=== PATIENT | female | born 1945 | race Caucasian/White ===

== ENCOUNTER → 2016-12-26 | Outpatient (CLI) | payer MEDICARE ==
--- NOTE | 2016-12-29 09:08 | CT ---
EXAM DESCRIPTION: CT abdomen and pelvis without contrast CLINICAL HISTORY: ABDOMINAL PAIN COMPARISON: None Available. TECHNIQUE: Noncontrast spiral CT with coronal and sagittal reformatted images. This exam was performed according to our departmental dose-optimization program, which includes automated exposure control, adjustment of the mA and/or kV according to patient size and/or use of iterative reconstruction technique. FINDINGS: Visualized lung bases are clear. Heart size is normal. Linear subsegmental atelectasis in the posterior segment right lower lobe No mass lesion in the abdominal viscera to suggest metastatic disease or primary neoplasm. Previous cholecystectomy. No biliary or pancreatic duct dilation No renal, ureteral or bladder calculus Atherosclerotic aorta without aneurysm No abnormality of the stomach or small intestine Numerous diverticula scattered throughout the sigmoid and to lesser extent descending colon. Transmural fat in the cecum, ascending and transverse colon likely sequela of remote inflammatory change. No diagnostic acute inflammatory process of the large intestine. Terminal ileum and appendix are normal Previous hysterectomy. 2.1 cm well-circumscribed left adnexal cyst, likely ovarian in etiology. Almost certainly benign, no follow-up imaging recommended No acute bony abnormality. Multilevel degenerative change in the spine. Severe disc and facet degeneration L4-5 IMPRESSION: Descending and sigmoid diverticulosis without diverticulitis. No diagnostic acute inflammatory process identified in the abdomen or pelvis Electronically signed by: Sabas Plasencia MD 12/29/2016 9:07 AM CDT
== END | disposition home or self-care (01) ==
LOC: CT 08:38
PROVIDERS: ATTEND Family Medicine
DX: K57.30 Diverticulosis of large intestine without perforation or abscess without bleeding (principal)

== ENCOUNTER 2017-05-23 14:58 | Emergency (ER) | payer MEDICARE ==
[2017-05-23] MEDS ORDERED: AZITHROMYCIN 250 MG TAB PO ONE (16:00)
[2017-05-23] MEDS ORDERED: predniSONE 20 MG TAB PO ONE (16:00)
[2017-05-23 16:09] VITALS: TEMP 97.7
--- NOTE | 2017-05-23 16:14 | ED.PDOC ---
History of Present Illness - General Chief Complaint: ENT Problem Stated Complaint: cough, sinus infection Time Seen by Provider: 05/23/17 16:00 Source: patient Exam Limitations: no limitations - History of Present Illness Initial Comments: The patient is a 71-year-old female presenting to the emergency room secondary to one week symptoms of cough and runny nose and generalized body aches. The patient was placed on Keflex last Thursday. She reports it has not helped much with the cough. She does have some sinus pressure. No real significant headache. No neurological changes. No documented fever. She reports that she has coughed enough that she is getting some pain in her upper back with the coughing as well as some pain in her anterior chest wall with coughing. No shortness of breath. Timing/Duration: 1 week Severity: mild Improving Factors: nothing Worsening Factors: nothing Associated Symptoms: cough, malaise Allergies/Adverse Reactions: Allergies NO KNOWN ALLERGY Allergy (Verified 05/23/17 16:10) Home Medications: Ambulatory Orders Clonidine HCl 0.1 mg PO 02/24/16 Phenytoin Sodium Cap Extended [Dilantin Cap] 0 mg PO 02/24/16 Triamcinolone Acetonide (Topic [Triamcinolone Acetonide] 1 applic TOP BID #30 gm 02/24/16 Azithromycin 500 mg PO DAILY #5 tab 05/23/17 predniSONE [Prednisone] 20 mg PO DAILY #3 tab 05/23/17 Review of Systems - Review of Systems Constitutional: States: malaise EENTM: States: nose congestion, throat pain - very mild Respiratory: States: cough Cardiology: States: no symptoms reported Gastrointestinal/Abdominal: States: no symptoms reported Genitourinary: States: no symptoms reported Musculoskeletal: States: see HPI Skin: States: no symptoms reported Neurological: States: no symptoms reported Endocrine: States: no symptoms reported All other Systems: No Change from Baseline Past Medical History (General) - Patient Medical History Hx Seizures: Yes Hx Stroke: No Hx Dementia: No Hx Asthma: No Hx of COPD: No Hx Cardiac Disorders: Yes - mitral valve prolapse, hyperlipidemia Hx Pacemaker: No Hx Hypertension: Yes Hx Thyroid Disease: No Hx Diabetes: No Hx Gastroesophageal Reflux: Yes Hx Renal Disease: No Hx Cancer: No Hx of HIV: No Hx Hepatitis C: No Hx MRSA: No Surgical History: Hysterectomy, other - Vaccination History Hx Tetanus, Diphtheria Vaccination: No Hx Influenza Vaccination: No Hx Pneumococcal Vaccination: No - Social History Hx Tobacco Use: Yes Hx Alcohol Use: Yes - rare Hx Substance Use: No Hx Substance Use Treatment: No Hx Depression: Yes - denies suicidal ideation Hx Physical Abuse: No Hx Emotional Abuse: No Hx Suspected Abuse: No - Female History Patient is a Female of Child Bearing Age (10 -59 yrs old): No Family Medical History - Family History Mother Living Status: Hx Cardiac Disease: Yes Hx Family;Other: renal cancer Father Living Status: Hx Family Diabetes: Yes Physical Exam - Physical Exam General Appearance: Alert, Comfortable, No apparent distress Eye Exam: bilateral normal Ears, Nose, Throat: hearing grossly normal - tympanic membranes show increased pressure but no obvious bacterial infection, nasal congestion, pharyngeal erythema - mild Neck: full range of motion, supple, normal inspection Respiratory: lungs clear - however the patient does have a rattley clearing cough from the upper airway, normal breath sounds, no respiratory distress, no accessory muscle use Cardiovascular/Chest: normal peripheral pulses, regular rate, rhythm, no edema Peripheral Pulses: radial,right: 2+, radial,left: 2+, dorsalis pedis,right: 2+, dorsalis pedis,left: 2+ Gastrointestinal/Abdominal: non tender, soft Rectal Exam: deferred Back Exam: normal inspection, no CVA tenderness Extremity: normal range of motion, non-tender, normal inspection, no pedal edema , normal capillary refill Neurologic: verification rep II-XII nml as tested, no motor/sensory deficits, alert, normal mood/affect, oriented x 3 Skin Exam: normal color Comments: Vital Signs - 24 hr 05/23/17 15:45 Temperature 97.7 F Pulse Rate [ 82 pulse ox] Respiratory 20 Rate Blood Pressure 161/74 [Left Arm] O2 Sat by Pulse 92 L Oximetry Progress - Progress Progress: 05/23/17 16:15 the patient is a 71-year-old female presenting to the emergency room secondary to persistent symptoms of rhinitis and bronchitis for the last week. The patient will be switched over to azithromycin though she does understand that it is more likely a viral infection than an atypical bacterial one. She additionally will be written for 3 days of oral prednisone to help reduce symptoms of the muscle strain and help reduce inflammation in the airways over the next few days. She needs to keep herself well hydrated. She should follow up with her primary care doctor early next week. ER warnings were given for any worsening. Departure - Departure Clinical Impression: Bronchitis, acute Qualifiers: Bronchitis organism: unspecified organism Qualified Code(s): J20.9 - Acute bronchitis, unspecified Disposition: Discharge to Home or Self Care Condition: Fair Departure Forms: ED Discharge - Pt. Copy, Patient Portal Self Enrollment Instructions: DI for Acute Bronchitis Diet: regular diet Activity: increase activity as tolerated Referrals: Adin Chatterjee MD [Primary Care Provider] - 1-5 Days Prescriptions: Azithromycin 500 mg PO DAILY #5 tab predniSONE [Prednisone] 20 mg PO DAILY #3 tab Home Medications: Ambulatory Orders Clonidine HCl 0.1 mg PO 02/24/16 Phenytoin Sodium Cap Extended [Dilantin Cap] 0 mg PO 02/24/16 Triamcinolone Acetonide (Topic [Triamcinolone Acetonide] 1 applic TOP BID #30 gm 02/24/16 Azithromycin 500 mg PO DAILY #5 tab 05/23/17 predniSONE [Prednisone] 20 mg PO DAILY #3 tab 05/23/17 Additional Instructions: the patient is a 71-year-old female presenting to the emergency room secondary to persistent symptoms of rhinitis and bronchitis for the last week. The patient will be switched over to azithromycin though she does understand that it is more likely a viral infection than an atypical bacterial one. She additionally will be written for 3 days of oral prednisone to help reduce symptoms of the muscle strain and help reduce inflammation in the airways over the next few days. She needs to keep herself well hydrated. She should follow up with her primary care doctor early next week. ER warnings were given for any worsening.
[2017-05-23 16:39] VITALS: BP 139/79; O2SAT 97
== END 2017-05-23 16:35 | disposition home or self-care (01) ==
LOC: ER 14:58
DX: J20.9 Acute bronchitis, unspecified (principal); R56.9 Unspecified convulsions; E78.5 Hyperlipidemia, unspecified; I34.1 Nonrheumatic mitral (valve) prolapse; I10 Essential (primary) hypertension; K21.9 Gastro-esophageal reflux disease without esophagitis; F32.9 Major depressive disorder, single episode, unspecified; F17.200 Nicotine dependence, unspecified, uncomplicated; Z79.899 Other long term (current) drug therapy
CPT/HCPCS: J7512; Q0144

== ENCOUNTER 2017-11-04 11:21 | Emergency (ER) | payer MEDICARE ==
[2017-11-04 11:39] VITALS: TEMP 97.2
--- NOTE | 2017-11-04 11:56 | ED.PDOC ---
History of Present Illness - General Chief Complaint: General Stated Complaint: generalized weakness,nausea Time Seen by Provider: 11/04/17 11:33 Source: patient Exam Limitations: no limitations - History of Present Illness Initial Comments: the patient is a 72-year-old female presenting to the emergency room secondary to feel like her blood pressures up and her heart rates and going little faster than normal.she has been having symptoms of sinusitis and purulent drainage from the last 2-3 weeks from bilateral maxillary sinuses. She has been taking [id number] cold medications which do likely contain some Sudafed. She takes clonidine only twice daily for blood pressure control. No focal neurological deficits. She feels fatigued and just generally weak. She has mild diffuse abdominal discomfort. She has had diverticulitis in the past. No defined fevers. No vomiting. Normal oral intake. No syncope or near- syncope. No chest pain. Timing/Duration: unsure Severity: mild Improving Factors: nothing Worsening Factors: nothing Associated Symptoms: headaches, malaise Allergies/Adverse Reactions: Allergies NO KNOWN ALLERGY Allergy (Verified 05/23/17 16:10) Home Medications: Ambulatory Orders Clonidine HCl 0.1 mg PO BID 02/24/16 Phenytoin Sodium Cap Extended [Dilantin Cap] 300 mg PO DAILY 02/24/16 Amoxicillin & Pot Clavulanate [Augmentin Tab] 875 mg PO BID #14 tab 11/04/17 Atorvastatin Calcium [Lipitor] 20 mg PO DAILY 11/04/17 Review of Systems - Review of Systems Constitutional: States: malaise EENTM: States: no symptoms reported Respiratory: States: no symptoms reported Cardiology: States: no symptoms reported Gastrointestinal/Abdominal: States: nausea - very mild Genitourinary: States: no symptoms reported Musculoskeletal: States: no symptoms reported Skin: States: no symptoms reported Neurological: States: headache - sinus Endocrine: States: no symptoms reported All other Systems: No Change from Baseline Past Medical History (General) - Patient Medical History Hx Seizures: Yes Hx Stroke: No Hx Dementia: No Hx Asthma: No Hx of COPD: No Hx Cardiac Disorders: Yes - mitral valve prolapse, hyperlipidemia Hx Pacemaker: No Hx Hypertension: Yes Hx Thyroid Disease: No Hx Diabetes: No Hx Gastroesophageal Reflux: Yes Hx Renal Disease: No Hx Cancer: No Hx of HIV: No Hx Hepatitis C: No Hx MRSA: No Surgical History: cholecystectomy, Hysterectomy - Vaccination History Hx Tetanus, Diphtheria Vaccination: No Hx Influenza Vaccination: No Hx Pneumococcal Vaccination: No - Social History Hx Tobacco Use: Yes Hx Alcohol Use: Yes - rare Hx Substance Use: No Hx Substance Use Treatment: No Hx Depression: Yes - denies suicidal ideation Hx Physical Abuse: No Hx Emotional Abuse: No Hx Suspected Abuse: No Family Medical History - Family History Mother Living Status: Hx Cardiac Disease: Yes Hx Family;Other: renal cancer Father Living Status: Cause of : CVA Hx Family Stroke: Yes Hx Family Diabetes: Yes Physical Exam - Physical Exam General Appearance: Alert, Comfortable, No apparent distress Eye Exam: bilateral normal Ears, Nose, Throat: hearing grossly normal, nasal congestion, other - the patient has tenderness to palpation over bilateral maxillary sinuses Neck: full range of motion, supple Respiratory: lungs clear, normal breath sounds, no respiratory distress, no accessory muscle use Cardiovascular/Chest: normal peripheral pulses, regular rate, rhythm, no edema Peripheral Pulses: radial,right: 2+, radial,left: 2+, dorsalis pedis,right: 2+, dorsalis pedis,left: 2+ Gastrointestinal/Abdominal: soft, other - mild diffuse discomfort to palpation. No definite palpable masses. No rebound or peritoneal signs. Rectal Exam: deferred Back Exam: normal inspection, no CVA tenderness, no vertebral tenderness Extremity: normal range of motion, non-tender, normal inspection, no pedal edema , normal capillary refill Neurologic: principal cloud architect II-XII nml as tested, no motor/sensory deficits - o nuchal rigidity or meningeal signs., alert, normal mood/affect, oriented x 3 Skin Exam: normal color Comments: Vital Signs - 24 hr 11/04/17 11:35 Temperature 97.2 F L Pulse Rate [ 78 Left Brachial] Respiratory 20 Rate Blood Pressure 158/74 [Left Arm] O2 Sat by Pulse 96 Oximetry Progress - Progress Progress: 11/04/17 11:57 the patient is a 72-year-old female presenting to the emergency room secondary to what is most likely bilateral maxillary sinusitis. The patient is going to be placed on Augmentin for 7 days. She needs to pharmacy picking technician some Rhinocort or Flonase and use that twice daily in each nostril for 10 days. She needs to discontinue any medications that have Sudafed or pseudoephedrine in them as these are likely driving up her blood pressures. blood pressure and heart rate here are within normal limits. She needs to keep herself well hydrated. She can take Pepcid twice daily for the next 2 weeks to help reduce any stomach discomfort from the medications. ER warnings were given for any significant worsening. she should follow-up with her primary care doctor in the next week or so. Departure - Departure Clinical Impression: Maxillary sinusitis, acute Qualifiers: Recurrence: not specified as recurrent Qualified Code(s): J01.00 - Acute maxillary sinusitis, unspecified Disposition: Discharge to Home or Self Care Condition: Fair Departure Forms: ED Discharge - Pt. Copy, Patient Portal Self Enrollment Instructions: DI for Sinusitis Diet: regular diet Activity: increase activity as tolerated Referrals: Adin Chatterjee MD [Primary Care Provider] - 1-2 Weeks Prescriptions: Amoxicillin & Pot Clavulanate [Augmentin Tab] 875 mg PO BID #14 tab Home Medications: Ambulatory Orders Clonidine HCl 0.1 mg PO BID 02/24/16 Phenytoin Sodium Cap Extended [Dilantin Cap] 300 mg PO DAILY 02/24/16 Amoxicillin & Pot Clavulanate [Augmentin Tab] 875 mg PO BID #14 tab 11/04/17 Atorvastatin Calcium [Lipitor] 20 mg PO DAILY 11/04/17 Additional Instructions: the patient is a 72-year-old female presenting to the emergency room secondary to what is most likely bilateral maxillary sinusitis. The patient is going to be placed on Augmentin for 7 days. She needs to pharmacy picking technician some Rhinocort or Flonase and use that twice daily in each nostril for 10 days. She needs to discontinue any medications that have Sudafed or pseudoephedrine in them as these are likely driving up her blood pressures. blood pressure and heart rate here are within normal limits. She needs to keep herself well hydrated. She can take Pepcid twice daily for the next 2 weeks to help reduce any stomach discomfort from the medications. ER warnings were given for any significant worsening. she should follow-up with her primary care doctor in the next week or so.
[2017-11-04 12:06] VITALS: BP 138/72; O2SAT 98
== END 2017-11-04 12:07 | disposition home or self-care (01) ==
LOC: ER 11:21
DX: J01.00 Acute maxillary sinusitis, unspecified (principal); E87.5 Hyperkalemia; I10 Essential (primary) hypertension; K21.9 Gastro-esophageal reflux disease without esophagitis; I34.1 Nonrheumatic mitral (valve) prolapse; Z87.891 Personal history of nicotine dependence

== ENCOUNTER → 2018-07-12 | Outpatient (CLI) | payer MEDICARE ==
--- NOTE | 2018-07-12 09:27 | CT ---
EXAM DESCRIPTION: Abdoment/Pelvis w/o Contrast CLINICAL HISTORY: 72 years Female, GENERALIZED ABDOMINAL PAIN COMPARISON: CT abdomen and pelvis dated 12/26/2016. TECHNIQUE: Contiguous 3 mm axial images were obtained from the lung bases to the level of the proximal femora without the administration of intravenous or oral contrast. Sagittal and coronal reconstructions were reviewed. FINDINGS: Limited evaluation of the solid organs due to the lack of intravenous contrast. THORAX: The imaged lower thorax demonstrates no gross abnormality. LIVER: The liver demonstrates normal size and density with no intrahepatic biliary ductal dilatation. GALLBLADDER: Surgically absent. PANCREAS: Appears normal with no cystic or solid lesions. SPLEEN: Normal ADRENAL GLANDS: Normal with no nodules or masses. KIDNEYS: Both kidneys are symmetric in size and contour with no hydronephrosis or nephrolithiasis or perinephric fluid collections. The visualized ureters appear grossly unremarkable. STOMACH: Thickening of the distal esophagus could be secondary to reflux. The stomach is not well-distended limiting detailed evaluation. SMALL BOWEL: The small bowel loops demonstrate variable degrees of distention with no abnormal dilatation or other signs to suggest bowel obstruction. LARGE BOWEL: Numerous diverticula are noted throughout the visualized colon. Mild constipation is also present. The appendix is well-visualized and appears normal No evidence of free intraperitoneal air or fluid. RETROPERITONEUM: The abdominal aorta is nonaneurysmal with mild atherosclerosis. The inferior vena cava is normal in size and caliber. No abnormally enlarged retroperitoneal lymph nodes are identified. URINARY BLADDER: The urinary bladder is mildly distended with no gross abnormality. The uterus is surgically absent. There is a 2.5 x 2.3 cm cystic lesion in the left adnexa which appears unchanged compared to prior CT dated 09/05/2015. ADDITIONAL FINDINGS: None. BONES: Mild degenerative changes are identified in the visualized bones. Stable 9 mm blastic lesion is identified in the posterior aspect of the left ilium. IMPRESSION: 1. No acute intra-abdominal or intrapelvic process. 2. Mild reflux esophagitis. 3. Colonic diverticulosis. Mild constipation. 4. 2.5 x 2.3 cm lesion is noted in the left adnexa which appears unchanged compared to prior CT dated 09/05/2015. Recommend prompt follow-up with pelvic US.Reference: J Am Marlene Radiol 2013;10:[id number] This exam was performed according to our departmental dose-optimization program, which includes automated exposure control, adjustment of the mA and/or kV according to patient size and/or use of iterative reconstruction technique. Electronically signed by: Maria Dolores Blake MD 07/12/2018 9:25 AM [facility]
== END ==
LOC: CT 08:11
PROVIDERS: ATTEND Family Medicine
DX: K57.30 Diverticulosis of large intestine without perforation or abscess without bleeding (principal); K59.00 Constipation, unspecified; K20.9 Esophagitis, unspecified; R10.84 Generalized abdominal pain

== ENCOUNTER → 2018-07-28 | Outpatient (CLI) | payer MEDICARE ==
--- NOTE | 2018-07-28 16:11 | RAD ---
EXAM DESCRIPTION: UGI: Rad-Fluoroscopy. CLINICAL HISTORY: GENERALIZED ABDOMINAL PAIN COMPARISON: CT abdomen and pelvis 07/12/2018. TECHNIQUE: The patient swallowed barium pill with water. The patient swallowed gas-producing granules, water, and heavy density barium under fluoroscopic visualization. The images were obtained with the patient upright and horizontal. Patient drank medium density barium through a straw in the semi-prone position. 52 fluoroscopic cine loop images. 19 static fluoroscopic images. Total fluoroscopy time was 4.4 minutes. DAP: 28.15 Gy-cm2.. Total dose 115.16 mGy. FINDINGS: Patient swallowed the barium pill which did not pass through the distal esophagus with 6 swallows of water. Please see the following findings. When the patient swallowed barium, there was approximately 50% narrowing of the distal esophagus above the esophageal hiatus where the barium pill was located. The degree of this narrowing varied during the examination, but occasionally completely occluded and not allowing barium to pass into the gastroesophageal junction. Tertiary and secondary contractions are noted in the esophagus with delayed passage of the contrast through the narrowed segment. A hiatal hernia was intermittently seen below the narrowed segment. On later images, this narrowed segment appears to correspond to a Schatzki's ring above the hiatal hernia. More swallowing images were obtained with the patient semiprone left side elevated. The barium pill is still visualized above the Schatzki's ring. After the patient finished drinking in the semiprone position, the barium pill passed into the stomach. Minimal gastroesophageal reflux. Stomach and duodenum are distended with gas and contrast material. No gross mucosal lesions or mass effect. IMPRESSION: 1. Small sliding hiatal hernia below a Schatzki's ring which demonstrates variable degrees of narrowing of the distal esophagus even complete occlusion. No mass effect or significant mucosal lesions. Secondary and tertiary contractions in the distal esophagus. 2. Stomach and duodenum well distended with gas and contrast material with no gross mucosal lesions or mass effect. Electronically signed by: Cy Minor MD 07/28/2018 4:08 PM [facility]
--- NOTE | 2018-07-29 08:53 | US ---
EXAM DESCRIPTION: Pelvic,Non-OB: Ultrasound. CLINICAL HISTORY: 73 years Female GENERALIZED ABDOMINAL PAIN. Prior hysterectomy and right oophorectomy. COMPARISON: CT scan abdomen and pelvis 09/05/2015. TECHNIQUE: Transcutaneous scanning through the urine filled bladder. Endovaginal scanning. Stewart-scale and Doppler modes. FINDINGS: Uterus has been removed. Vaginal cuff is unremarkable Cul-de-sac contains no fluid. Right ovary not visualized. No adnexal mass or free fluid. Left ovary 2.2 x 2.1 x 2.1 cm. Predominantly cystic. Minimal color Doppler vascularity. No adnexal mass or free fluid. IMPRESSION: 1. Uterus and right ovary have been removed. No free fluid or right adnexal mass. 2.Indeterminately sized simple ovarian cyst. No change from prior CT scan August 2015. If <= 3cm, no follow-up imaging is recommended; if > 3cm and <= 7cm, recommend follow-up pelvic US annually; if > 7cm, recommend follow-up pelvic MRI with IV contrast or surgical evaluation. Reference: Radiology 2009;256(3):[id number] Electronically signed by: Cy Minor MD 07/29/2018 8:50 AM [facility]
== END ==
LOC: RAD 08:00
PROVIDERS: ATTEND Family Medicine
DX: K44.9 Diaphragmatic hernia without obstruction or gangrene (principal); K22.2 Esophageal obstruction; Z90.710 Acquired absence of both cervix and uterus

== ENCOUNTER 2018-08-27 05:43 | Day surgery (SDC) | payer MEDICARE ==
[2018-08-27] MEDS ORDERED: PROPOFOL 200 MG/20 ML VIAL IV ONE (07:00)
[2018-08-27] MEDS: LACTATED RINGERS 1,000 ML ONE (11:15)
--- NOTE | 2018-08-27 13:23 | OP ---
DATE OF PROCEDURE: 08/27/18 PREPROCEDURE DIAGNOSIS: 1. Dysphagia. POSTPROCEDURE DIAGNOSIS: 1. Abnormal esophageal mucosa status post dilation, Savary, 18 mm. 2. Erythematous gastropathy. PROCEDURE: 1. Esophagogastroduodenoscopy. SURGEON: Leo Wild MD COMPLICATIONS: No immediate complications. SEDATION: Anesthesia provided by the Anesthesia Department. CONSENT: Prior to the procedure, risks, benefits and alternatives to the therapy were discussed with the patient. The risks included bleeding, infection, perforation and . The patient agreed to the procedure and signed a consent. PREPROCEDURE ANESTHESIA ASSESSMENT: Mallampati class type 2, ASA grade assessment type 2. Throughout the procedure, the patient's blood pressure and additional vitals were closely monitored. PROCEDURE: The patient was placed in the left lateral decubitus position. Bite block was placed in the mouth between the teeth. The Olympus endoscope was introduced through the oropharynx, esophagus, stomach and the second portion of the duodenum. The scope was retracted and the mucosa visualized. The entirety of the exam was performed under direct visualization. Retroflexion was performed in the stomach. The patient tolerated the procedure well. FINDINGS: 1. Subtle, abnormal findings in the mucosa were found throughout the esophagus which were characterized by longitudinal furrows and ringed esophagus. Distal and proximal esophageal biopsies were obtained with cold forceps to rule out eosinophilic esophagitis (EOE). Preparations were made for dilation. A Savary wire was advanced through the scope and the scope was removed. Serial dilation was achieved with Savary tube, initially 17 mm, then 18 mm with mild and moderate resistance, respectively. There was no bleeding during or at the end of the procedure. 2. Erythema was found in the gastric antrum. Biopsies were taken with cold forceps to rule out H. pylori. Otherwise, the stomach was normal. 3. Normal duodenum. RECOMMENDATION: 1. Return the patient home. 2. Resume previous diet. 3. Start omeprazole 40 mg p.o. b.i.d. 4. Followup pathology results. 5. Return to my office in the next 1 to 2 weeks. 6. The findings were discussed with the patient and family members. #[id number] [facility]
[2018-08-27 13:29] VITALS: BP 186/73; TEMP 97.4; O2SAT 99
== END 2018-08-27 13:20 ==
LOC: AMB 05:43
PROVIDERS: ATTEND Internal Medicine Gastroenterology
DX: K29.50 Unspecified chronic gastritis without bleeding (principal); I10 Essential (primary) hypertension; I25.10 Atherosclerotic heart disease of native coronary artery without angina pectoris; I48.91 Unspecified atrial fibrillation; F17.210 Nicotine dependence, cigarettes, uncomplicated; Z86.010 Personal history of colon polyps; Z79.82 Long term (current) use of aspirin; Z79.899 Other long term (current) drug therapy
CPT/HCPCS: 00731; 43239; 43248; 88305; 88342; J3490; J7120

== ENCOUNTER 2018-10-29 05:22 | Day surgery (SDC) | payer MEDICARE ==
[2018-10-29] MEDS ORDERED: LIDOCAINE 1% 10 ML VIAL INJ ONE (07:00)
[2018-10-29] MEDS ORDERED: PROPOFOL 200 MG/20 ML VIAL IV ONE (07:00)
[2018-10-29] MEDS ORDERED: LACTATED RINGERS 1,000 ML ONE (07:04)
[2018-10-29 09:53] VITALS: BP 160/79; TEMP 97.2; O2SAT 99
--- NOTE | 2018-10-29 10:09 | OP ---
DATE OF PROCEDURE: 10/29/18 PREPROCEDURE DIAGNOSIS: 1. Colorectal cancer screening. POSTPROCEDURE DIAGNOSIS: 1. Colonic polyps. 2. Diverticulosis. 3. Internal and external hemorrhoids. 4. Hypertrophic anal papilla. PROCEDURE: 1. Colonoscopy. SURGEON: Leo Wild MD COMPLICATIONS: No immediate complications. SEDATION: Anesthesia was provided by the Anesthesia Department. CONSENT: Prior to the procedure, risks, benefits and alternatives to the therapy were discussed with the patient. The risks included bleeding, infection, perforation and . The patient agreed to the procedure and signed a consent. PREPROCEDURE ANESTHESIA ASSESSMENT: An examination revealed no contraindication to sedation. Airway examination demonstrated a Mallampati class type 2, ASA grade assessment type 2. Throughout the procedure, the patient's vital signs were closely monitored. PROCEDURE: The patient was placed in the left lateral decubitus position and a rectal examination was performed. The rectal examination was within normal limits. The Olympus colonoscope was passed in the anus, rectum, traversing the colon to the level of the cecum as identified by the appendiceal orifice. The scope was retracted and the mucosa was visualized. The entirety of the exam was performed under direct visualization. Retroflexion was performed in the rectum. Preparation quality was good. The withdrawal time was greater than 6 minutes. The patient tolerated the procedure well. FINDINGS: 1. Multiple colonic polyps were found throughout the colon. One 3 mm polyp was found in the ascending colon, one 8 mm sessile polyp in the transverse colon, one 5 mm sessile polyp in the descending colon, and one 5 mm sessile polyp in the rectum. These were all removed with cold snare polypectomy. The polyps were complete retrieved. No bleeding during or at the end of the procedure. 2. Moderate diverticulosis was found throughout the colon, more predominant in the sigmoid and descending colon. 3. Large, non-bleeding internal hemorrhoids, grade 3. 4. External hemorrhoids were also visualized. 5. Hypertrophic anal papilla. RECOMMENDATION: 1. Return the patient home. 2. Resume previous diet favoring high-fiber foods. 3. Followup pathology results. 4. Repeat colonoscopy in the next 3 years if evidence of adenomatous tissue and polyps. 5. Return to referring physicians office as previously scheduled. 6. Findings were discussed with the patient and family members. #[id number] [facility]
== END 2018-10-29 09:45 | disposition home or self-care (01) ==
LOC: AMB 05:22
PROVIDERS: ATTEND Internal Medicine Gastroenterology
DX: Z12.11 Encounter for screening for malignant neoplasm of colon (principal); D12.2 Benign neoplasm of ascending colon; D12.4 Benign neoplasm of descending colon; D12.3 Benign neoplasm of transverse colon; K62.1 Rectal polyp; K57.30 Diverticulosis of large intestine without perforation or abscess without bleeding; K64.2 Third degree hemorrhoids; K64.4 Residual hemorrhoidal skin tags; K62.89 Other specified diseases of anus and rectum; K59.00 Constipation, unspecified; F17.210 Nicotine dependence, cigarettes, uncomplicated; F41.9 Anxiety disorder, unspecified; F32.9 Major depressive disorder, single episode, unspecified; I10 Essential (primary) hypertension; G40.409 Other generalized epilepsy and epileptic syndromes, not intractable, without status epilepticus; Z83.3 Family history of diabetes mellitus; Z83.71 Family history of colonic polyps; Z79.82 Long term (current) use of aspirin; Z79.899 Other long term (current) drug therapy
CPT/HCPCS: 00812; 45385; 88305; J3490; J7120

== ENCOUNTER → 2018-11-24 | Outpatient (CLI) | payer MEDICARE | LOC: GMAH 10:31 | PROVIDERS: ATTEND Family Medicine | DX: I10 Essential (primary) hypertension (principal); G40.309 Generalized idiopathic epilepsy and epileptic syndromes, not intractable, without status epilepticus; N39.0 Urinary tract infection, site not specified ==

== ENCOUNTER 2019-03-28 06:35 | Emergency (ER) | payer MEDICARE ==
[2019-03-28 06:50] VITALS: TEMP 98.2
[2019-03-28] MEDS ORDERED: SODIUM CHLORIDE 0.9% IVS ONE (07:09)
--- NOTE | 2019-03-28 07:22 | RAD ---
EXAM DESCRIPTION: Chest,1 View CLINICAL HISTORY: chest tightness COMPARISON: February 16, 2015 FINDINGS: The cardiomediastinal silhouette is unremarkable. The lung apices are partially excluded from this exam. Mild subsegmental atelectasis or scarring in the right lung base without airspace consolidation or pleural effusion. The lung volumes are at the upper limits of normal range. There is no pneumothorax or acute fracture. IMPRESSION: Upper normal lung volumes which may be related to deep inspiration or underlying COPD. No acute intrathoracic abnormality, only slightly limited as detailed above. Electronically signed by: Stan Malik MD 03/28/2019 7:21 AM CDT
[2019-03-28] MEDS ORDERED: IPRATROPIUM/ALBUTEROL 3 ML VIAL NEB ONE (07:25)
[2019-03-28] MEDS ORDERED: cefTRIAXone SODIUM 1 GM in SODIUM CHL 0.9% 50ML MIN-BAG+ 50 ML IVPB ONE (07:26)
[2019-03-28] MEDS ORDERED: methylPREDNISolone SODIUM SUC 125 MG/2 ML VIAL IV ONE (07:26)
[2019-03-28] MEDS ORDERED: cefTRIAXone SODIUM 1 GM VIAL ONE (07:32)
[2019-03-28] MEDS ORDERED: SODIUM CHL 0.9% 50ML MIN-BAG+ 0 ML IVPB ONE (07:32)
--- NOTE | 2019-03-28 07:32 | ED.PDOC ---
History of Present Illness - General Chief Complaint: Cardiovascular Problem Stated Complaint: rapid pulse, elevated blood pressure Time Seen by Provider: 03/28/19 07:03 Source: patient - History of Present Illness Initial Comments: 73 y/o F presents to the ED with c/o SOB, elevated HR and BP onset last night. Pt reports that she checked her HR and BP after she wasn't feeling well and noticed that they were abnormal. She reports a hx of irregular HR in the past but reports that she doesn't take anything for it and has never seen a frame trimmer. She reports cough and SOB also onset 1 day ago, she has a hx of smoking but denies hx of lung dz. She was recently placed on macrobid for treatment of "a kidney infection" and finished abx but states that her back pain has not significantly changed since taking the medication. She denies fever/chills or N/V. Sx currently moderate in severity and nothing she does seems to make them better or worse. Allergies/Adverse Reactions: Allergies NO KNOWN ALLERGY Allergy (Verified 10/28/18 12:54) Home Medications: Ambulatory Orders Clonidine HCl 0.1 mg PO BID 02/24/16 Phenytoin Sodium Cap Extended [Dilantin Cap] 300 mg PO QPM 02/24/16 Atorvastatin Calcium [Lipitor] 20 mg PO QPM 11/04/17 Aspirin [Aspirin Adult Low Dose] 81 mg PO BEDTIME 08/26/18 Omeprazole [Prilosec Cap] 40 mg PO ACBK 10/28/18 Prochlorperazine Tab [Compazine Tab] 10 mg PO PRN PRN 10/28/18 Albuterol Inhaler [Ventolin Hfa Inhaler] 1 - 2 puff INH Q4H PRN #1 inh 03/28/19 Cephalexin Monohydrate [Keflex] 500 mg PO TID #30 cap 03/28/19 Prednisone 50 mg PO DAILY #5 tab 03/28/19 Review of Systems - Review of Systems Constitutional: States: weakness. Denies: chills, fever EENTM: Denies: double vision, ear pain, throat pain Respiratory: States: cough, short of breath Cardiology: States: palpitations. Denies: chest pain, edema, syncope Gastrointestinal/Abdominal: States: nausea. Denies: abdominal pain, diarrhea, vomiting Genitourinary: States: pain. Denies: dysuria, hematuria Musculoskeletal: Denies: joint pain, muscle pain, neck pain Skin: Denies: lesions, rash Neurological: States: other - lightheaded. Denies: headache, numbness, weakness Past Medical History (General) - Patient Medical History Hx Seizures: Yes Hx Stroke: No Hx Dementia: No Hx Asthma: No Hx of COPD: No Hx Cardiac Disorders: Yes - mitral valve prolapse, hyperlipidemia Hx Congestive Heart Failure: No Hx Pacemaker: No Hx Hypertension: Yes Hx Thyroid Disease: No Hx Diabetes: No Hx Gastroesophageal Reflux: Yes Hx Renal Disease: No Hx Cancer: No Hx of HIV: No Hx Hepatitis C: No Hx MRSA: No Surgical History: Hysterectomy - Vaccination History Hx Tetanus, Diphtheria Vaccination: No Hx Influenza Vaccination: Yes Hx Pneumococcal Vaccination: No - Social History Hx Tobacco Use: Yes Hx Alcohol Use: Yes - rare Hx Substance Use: No Hx Substance Use Treatment: No Hx Depression: Yes - denies suicidal ideation Hx Physical Abuse: No Hx Emotional Abuse: No Hx Suspected Abuse: No Family Medical History - Family History Mother Living Status: Hx Cardiac Disease: Yes Hx Family;Other: renal cancer Father Living Status: Cause of : CVA Hx Family Stroke: Yes Hx Family Diabetes: Yes Physical Exam - Physical Exam General Appearance: Alert, Well Developed, Well Nourished Eye Exam: bilateral normal Ears, Nose, Throat: normal pharynx, other - Slightly dry mucous membranes. Neck: full range of motion, supple, normal inspection Respiratory: no respiratory distress, no accessory muscle use, other - coarse BS. Cardiovascular/Chest: no edema, no murmur, tachycardia Peripheral Pulses: radial,right: 2+, radial,left: 2+, dorsalis pedis,right: 2+, dorsalis pedis,left: 2+ Gastrointestinal/Abdominal: normal bowel sounds, non tender, soft Back Exam: normal inspection, no CVA tenderness, no vertebral tenderness Extremity: normal range of motion, normal inspection, no pedal edema Neurologic: no motor/sensory deficits, alert, normal mood/affect, oriented x 3, abnormal forge helper II-XII Skin Exam: normal color, warm/dry Progress - Progress Progress: 03/28/19 08:10: Lab and imaging results reviewed showing leukocytosis with hematuria and pyruria without lactic acidosis consistent with UTI. Age adjusted D-Dimer is within normal limits. Trop and BNP WNL. Chem with slightly low bicarb. CXR suggestive of COPD. As pt continues to have back pain with hematuria and no hx of stones will CT A/P for further evaluation. Pr recheck: Pt is resting comfortably. HR now down to the 90s after IVF. She states that breathing has improved after neb treatments. We discussed lab and imaging results so far along with plan for CT scan for back pain/hematuria and continued monitoring. Pt voiced understanding and agrees. 03/28/19 09:27 CT A/P results reviewed. Pt rechcek: Pt still resting comfortably. VSS. We discussed CT findings and admission. Pt states that if at all possible she would prefer to go home on out pt medications and PCP follow up. We discussed repeat trop and lactic acid testing and pt agrees to stay for these tests. 03/28/19 10:00 Repeat lactic acid and trop both within normal limits. VSS. With normal trop at presentation and 3 hours later and improvmernt with avelino treatments I doubt pt SOB due to cardiac cause and more likely related to COPD. Pt advised on this and advised to f/u with PCP for formal testing and diagnosis. With leukocytosis but no findings of severe sepsis, I think it is reasonable to d/c pt with out pt management and f/u. Pt recheck: Lab results discussed, pt would still like to go home. Went over plan for d/c, Rx and how to take them as well as return precautions. Pt voiced understanding and agrees and all questions/concerns were addressed. - Results/Orders Results/Orders: 03/28/19 06:54 Telemetry .ONCE Pulse Ox Stat 03/28/19 07:00 EKG STAT 03/28/19 07:09 Sodium Chloride 0.9% 1000ML [Ns 1000 ml] 1,959.51 ml IVS ONCE 03/28/19 07:20 BLOOD CULTURE Stat 03/28/19 07:45 SVN [SVN/Updraft Therapy] .PRN 03/28/19 08:10 Abdoment/Pelvis w/o Contrast [CT] Stat 03/28/19 09:15 LACTIC ACID Q2H 03/29/19 01:15 LACTIC ACID Q2H 03/29/19 03:15 LACTIC ACID Q2H 03/29/19 05:15 LACTIC ACID Q2H Laboratory Results - last 24 hr 03/28/19 03/28/19 03/28/19 07:09 07:09 07:09 WBC 15.9 H RBC 4.49 Hgb 14.2 Hct 42.6 MCV 94.9 MCH 31.6 H MCHC 33.3 RDW 13.8 Plt Count 362 MPV 7.1 L Absolute Neuts (auto) 14.00 H Absolute Lymphs (auto) 0.60 L Absolute Monos (auto) 1.20 H Absolute Eos (auto) 0.10 Absolute Basos (auto) 0.00 Neutrophils % 87.8 H Lymphocytes % 3.9 L Monocytes % 7.5 Eosinophils % 0.7 L Basophils % 0.1 PT 10.4 INR 1.04 PTT (SP) 24.6 D-Dimer, Quantitative 0.52 H* Sodium 133 L Potassium 3.8 Chloride 103 Carbon Dioxide 19 L Anion Gap 14.8 BUN 9 Creatinine 0.51 L BUN/Creatinine Ratio 17.6 Random Glucose 156 H Serum Osmolality 268.3 L Lactic Acid 1.4 Calcium 8.5 Magnesium 1.7 L Total Bilirubin 0.4 Direct Bilirubin < 0.1 Indirect Bilirubin 0.3 AST 20 ALT 20 Alkaline Phosphatase 123 H Creatine Kinase 67 CK-MB (CK-2) 1.9 CK-MB (CK-2) % Not Reportable Troponin I < 0.02 B-Natriuretic Peptide 30.6 Serum Total Protein 6.4 Albumin 3.4 Urine Color Urine Appearance Urine pH Ur Specific [place] Urine Protein Urine Glucose (UA) Urine Ketones Urine Blood Urine Nitrite Urine Bilirubin Urine Urobilinogen Ur Leukocyte Esterase Urine RBC Urine WBC Ur Epithelial Cells Urine Bacteria Urine Mucus Urine Yeast 03/28/19 07:20 WBC RBC Hgb Hct MCV MCH MCHC RDW Plt Count MPV Absolute Neuts (auto) Absolute Lymphs (auto) Absolute Monos (auto) Absolute Eos (auto) Absolute Basos (auto) Neutrophils % Lymphocytes % Monocytes % Eosinophils % Basophils % PT INR PTT (SP) D-Dimer, Quantitative Sodium Potassium Chloride Carbon Dioxide Anion Gap BUN Creatinine BUN/Creatinine Ratio Random Glucose Serum Osmolality Lactic Acid Calcium Magnesium Total Bilirubin Direct Bilirubin Indirect Bilirubin AST ALT Alkaline Phosphatase Creatine Kinase CK-MB (CK-2) CK-MB (CK-2) % Troponin I B-Natriuretic Peptide Serum Total Protein Albumin Urine Color Yellow Urine Appearance Clear Urine pH 6.0 Ur Specific [place] 1.020 Urine Protein Negative Urine Glucose (UA) Negative Urine Ketones Negative Urine Blood Small H Urine Nitrite Negative Urine Bilirubin Negative Urine Urobilinogen 0.2 Ur Leukocyte Esterase Negative Urine RBC 10-20 H Urine WBC 3-5 H Ur Epithelial Cells 5-10 Urine Bacteria 1+ Urine Mucus Trace Urine Yeast Rare CXR read by radiology and reviewed by myself: IMPRESSION: Upper normal lung volumes which may be related to deep inspiration or underlying COPD. No acute intrathoracic abnormality, only slightly limited as detailed above. Electronically signed by: Stan Malik MD 03/28/2019 7:[address] A/P Read by radiology and reviewed by myself: IMPRESSION: Etiology of hematuria not identified. No renal stone disease. No neoplastic mass lesion Colonic diverticulosis without diverticulitis Electronically signed by: Sabas Plasencia MD 03/28/2019 9:16 AM CDT - EKG/XRAY/CT EKG: Tachy, LBBB, nonspecific ST T wave Chg Comments: rate 104. LAD. Read at 0643 Departure - Departure Clinical Impression: Bronchitis, SOB (shortness of breath) UTI (urinary tract infection) Qualifiers: Urinary tract infection type: site unspecified Hematuria presence: with hematuria Qualified Code(s): N39.0 - Urinary tract infection, site not specified; R31.9 - Hematuria, unspecified Time of Disposition: 10:05 Disposition: Discharge to Home or Self Care Condition: Good Departure Forms: ED Discharge - Pt. Copy, Patient Portal Self Enrollment Instructions: COPD Including Emphysema (DC), Urinary Tract Infections in Adults Referrals: Kt Gee MD [Primary Care Provider] - 1-2 Weeks Prescriptions: Albuterol Inhaler [Ventolin Hfa Inhaler] 1 - 2 puff INH Q4H PRN #1 inh PRN Reason: sob Cephalexin Monohydrate [Keflex] 500 mg PO TID #30 cap Prednisone 50 mg PO DAILY #5 tab Home Medications: Ambulatory Orders Clonidine HCl 0.1 mg PO BID 02/24/16 Phenytoin Sodium Cap Extended [Dilantin Cap] 300 mg PO QPM 02/24/16 Atorvastatin Calcium [Lipitor] 20 mg PO QPM 11/04/17 Aspirin [Aspirin Adult Low Dose] 81 mg PO BEDTIME 08/26/18 Omeprazole [Prilosec Cap] 40 mg PO ACBK 10/28/18 Prochlorperazine Tab [Compazine Tab] 10 mg PO PRN PRN 10/28/18 Albuterol Inhaler [Ventolin Hfa Inhaler] 1 - 2 puff INH Q4H PRN #1 inh 03/28/19 Cephalexin Monohydrate [Keflex] 500 mg PO TID #30 cap 03/28/19 Prednisone 50 mg PO DAILY #5 tab 03/28/19 Additional Instructions: Take medications as directed. Call PCP today to schedule f/u appt as soon as possible. Return for persistent or worsening sx, fevers or other concerning signs or sx. Comments: Linda Bunch DO [facility]#[id number]
--- NOTE | 2019-03-28 09:17 | CT ---
EXAM DESCRIPTION: CT abdomen and pelvis without contrast CLINICAL HISTORY: Back pain. Hematuria. COMPARISON: 07/12/2018 TECHNIQUE: Spiral CT with multiplanar reformatted images. This exam was performed according to our departmental dose-optimization program, which includes automated exposure control, adjustment of the mA and/or kV according to patient size and/or use of iterative reconstruction technique. FINDINGS: No renal, ureteral or bladder calculus. Multiple phleboliths in the pelvis. Phlebolith of the ovarian veins in the mid abdomen. No mass lesion of the kidneys ureters or bladder Colonic diverticulosis primarily affecting descending and sigmoid colon without diverticulitis. No mass lesion or acute inflammatory process seen in the stomach, small or large intestine Heart size is normal. Mild vascular congestion. Bilateral small pleural effusions and adjacent compressive atelectasis of the dependent bilateral lower lobes. No abnormality of the liver. Previous cholecystectomy. No biliary duct dilation Normal appearance of the spleen, pancreas and adrenal glands No mass lesion or adenopathy in the omentum, mesentery or retroperitoneum. Atherosclerotic aorta without aneurysm No acute bony abnormality. Multilevel degenerative change spine IMPRESSION: Etiology of hematuria not identified. No renal stone disease. No neoplastic mass lesion Colonic diverticulosis without diverticulitis Electronically signed by: Sabas Plasencia MD 03/28/2019 9:16 AM CDT
[2019-03-28 09:19] VITALS: O2SAT 93
[2019-03-28 10:03] VITALS: BP 139/60
== END 2019-03-28 10:15 | disposition home or self-care (01) ==
LOC: ER 06:35
DX: J40 Bronchitis, not specified as acute or chronic (principal); R06.02 Shortness of breath; N39.0 Urinary tract infection, site not specified; R31.9 Hematuria, unspecified; E78.5 Hyperlipidemia, unspecified; I34.1 Nonrheumatic mitral (valve) prolapse; I10 Essential (primary) hypertension; K21.9 Gastro-esophageal reflux disease without esophagitis; Z87.891 Personal history of nicotine dependence; F32.9 Major depressive disorder, single episode, unspecified; D72.829 Elevated white blood cell count, unspecified; I44.7 Left bundle-branch block, unspecified
CPT/HCPCS: 36415; 71045; 74176; 80048; 80076; 81001; 82550; 82553; 83605; 83880; 84484; 85025; 85379; 85610; 85730; 87040; 93005; 94640; 94760; J0696; J2930; J7030; J7620

== ENCOUNTER 2019-04-09 18:06 | Emergency (ER) | payer MEDICARE ==
[2019-04-09 18:19] VITALS: TEMP 98; O2SAT 96
[2019-04-09] MEDS ORDERED: KETOROLAC TROMETHAMINE INJ 30 MG/ML VIAL IM ONE (18:32)
--- NOTE | 2019-04-09 18:33 | ED.PDOC ---
History of Present Illness - General Chief Complaint: Problem Stated Complaint: Urgency, frequency, discomfort Time Seen by Provider: 04/09/19 18:25 Source: patient, RN notes reviewed, Vital Signs reviewed Exam Limitations: no limitations - History of Present Illness Initial Comments: this is a 73-year-old white female who presents to the emergency Department today with complaints of dysuria. She states that this is been ongoing for approximately one month. She was placed on Keflex originally and then Macrodantin thereafter approximately 2 weeks apart. She states that she has not had relief of her symptoms since then. She did have left flank tenderness early on and thenit resolved and then in the last couple of days she has noticed that she has been sore on the left side again. She denies any emesis. She has had some nausea here and there. She denies any fever or chills. Has not noticed any hematuria. The last time she was treated there was not a culture obtained. Allergies/Adverse Reactions: Allergies NO KNOWN ALLERGY Allergy (Verified 04/09/19 18:18) Home Medications: Ambulatory Orders Clonidine HCl 0.1 mg PO BID 02/24/16 Phenytoin Sodium Cap Extended [Dilantin Cap] 300 mg PO QPM 02/24/16 Atorvastatin Calcium [Lipitor] 20 mg PO QPM 11/04/17 Aspirin [Aspirin Adult Low Dose] 81 mg PO BEDTIME 08/26/18 Omeprazole [Prilosec Cap] 40 mg PO ACBK 10/28/18 Prochlorperazine Tab [Compazine Tab] 10 mg PO PRN PRN 10/28/18 Albuterol Inhaler [Ventolin Hfa Inhaler] 1 - 2 puff INH Q4H PRN #1 inh 03/28/19 Ciprofloxacin [Cipro] 250 mg PO Q12H #14 tablet 04/09/19 Phenazopyridine HCl [Pyridium] 200 mg PO Q8HRS #6 tab 04/09/19 Review of Systems - Review of Systems Constitutional: Denies: chills, fever EENTM: States: no symptoms reported Respiratory: States: no symptoms reported Cardiology: States: no symptoms reported Gastrointestinal/Abdominal: States: abdominal pain, nausea. Denies: vomiting Genitourinary: States: dysuria, frequency, pain. Denies: hematuria Musculoskeletal: States: back pain, other - left-sided Skin: States: no symptoms reported Neurological: States: no symptoms reported Hematologic/Lymphatic: States: no symptoms reported All other Systems: Reviewed and Negative Past Medical History (General) - Patient Medical History Hx Seizures: Yes Hx Stroke: No Hx Dementia: No Hx Asthma: No Hx of COPD: No Hx Cardiac Disorders: Yes - mitral valve prolapse, hyperlipidemia Hx Congestive Heart Failure: No Hx Pacemaker: No Hx Hypertension: Yes Hx Thyroid Disease: No Hx Diabetes: No Hx Gastroesophageal Reflux: Yes Hx Renal Disease: No Hx Cancer: No Hx of HIV: No Hx Hepatitis C: No Hx MRSA: No Surgical History: cholecystectomy, Hysterectomy - Vaccination History Hx Tetanus, Diphtheria Vaccination: No Hx Influenza Vaccination: Yes Hx Pneumococcal Vaccination: No - Social History Hx Tobacco Use: Yes Hx Alcohol Use: Yes - rare Hx Substance Use: No Hx Substance Use Treatment: No Hx Depression: Yes - denies suicidal ideation Hx Physical Abuse: No Hx Emotional Abuse: No Hx Suspected Abuse: No Family Medical History - Family History Mother Living Status: Hx Cardiac Disease: Yes Hx Family;Other: renal cancer Father Living Status: Cause of : CVA Hx Family Stroke: Yes Hx Family Diabetes: Yes Physical Exam - Physical Exam General Appearance: Alert, No apparent distress Eyes, Ears, Nose, Throat Exam: PERRL/EOMI Neck: non-tender, full range of motion, supple Cardiovascular/Respiratory: regular rate, rhythm, no M/R/G, normal peripheral pulses, no JVD, normal breath sounds, no respiratory distress Gastrointestinal/Abdominal: normal bowel sounds, non tender, soft, tenderness, other - suprapubically Rectal Exam: deferred Back Exam: CVA tenderness (L), other - mild Extremity: normal range of motion, non-tender, normal inspection, no pedal edema Neurologic: no motor/sensory deficits, alert, normal mood/affect, oriented x 3 Skin Exam: normal color, warm/dry Lymphatic: no adenopathy Progress - Progress Progress: 04/09/19 18:48 patient noted to have budding yeast in the urine. No RBCs no WBCs present. Still having a lot of dysuria. It may be due to the vaginitis. We'll keep her on an antibiotic until the culture is negative. - Results/Orders Results/Orders: 04/09/19 18:28 Urine Culture Stat Laboratory Results - last 24 hr 04/09/19 18:24 Urine Color Yellow Urine Appearance Clear Urine pH 7.0 Ur Specific [place] 1.015 Urine Protein Negative Urine Glucose (UA) Negative Urine Ketones Negative Urine Blood Negative Urine Nitrite Negative Urine Bilirubin Negative Urine Urobilinogen 0.2 Ur Leukocyte Esterase Negative Urine RBC 0 Urine WBC 0 Ur Epithelial Cells 20-30 Urine Bacteria 1+ Urine Yeast 1+ budding H Departure - Departure Clinical Impression: Vaginitis and vulvovaginitis, unspecified, Dysuria Time of Disposition: 18:53 Disposition: Discharge to Home or Self Care Condition: Good Departure Forms: ED Discharge - Pt. Copy, Patient Portal Self Enrollment Instructions: DI for Urinary Tract Infection (UTI), Vaginal Yeast Infection (DC) Referrals: Kt Gee MD [Primary Care Provider] - 1-2 Weeks Prescriptions: Phenazopyridine HCl [Pyridium] 200 mg PO Q8HRS #6 tab Ciprofloxacin [Cipro] 250 mg PO Q12H #14 tablet Home Medications: Ambulatory Orders Clonidine HCl 0.1 mg PO BID 02/24/16 Phenytoin Sodium Cap Extended [Dilantin Cap] 300 mg PO QPM 02/24/16 Atorvastatin Calcium [Lipitor] 20 mg PO QPM 11/04/17 Aspirin [Aspirin Adult Low Dose] 81 mg PO BEDTIME 08/26/18 Omeprazole [Prilosec Cap] 40 mg PO ACBK 10/28/18 Prochlorperazine Tab [Compazine Tab] 10 mg PO PRN PRN 10/28/18 Albuterol Inhaler [Ventolin Hfa Inhaler] 1 - 2 puff INH Q4H PRN #1 inh 03/28/19 Ciprofloxacin [Cipro] 250 mg PO Q12H #14 tablet 04/09/19 Phenazopyridine HCl [Pyridium] 200 mg PO Q8HRS #6 tab 04/09/19 Additional Instructions: cholesterol medication for 3 days and then restart. Complete Cipro until notified of negative culture. Drink plenty of fluids. Monitor for fever. If worsening of symptoms returned to ER or follow up with PCP.
[2019-04-09] MEDS ORDERED: CIPROFLOXACIN 500 MG TAB PO ONE (18:46)
[2019-04-09] MEDS ORDERED: FLUCONAZOLE 150 MG TAB PO ONE (18:46)
[2019-04-09 19:03] VITALS: BP 143/85
== END 2019-04-09 19:04 | disposition home or self-care (01) ==
LOC: ER 18:06
DX: N77.1 Vaginitis, vulvitis and vulvovaginitis in diseases classified elsewhere (principal); R30.0 Dysuria; R11.0 Nausea; R10.9 Unspecified abdominal pain; F32.9 Major depressive disorder, single episode, unspecified; R56.9 Unspecified convulsions; E78.5 Hyperlipidemia, unspecified; I10 Essential (primary) hypertension; K21.9 Gastro-esophageal reflux disease without esophagitis; I34.1 Nonrheumatic mitral (valve) prolapse; Z87.891 Personal history of nicotine dependence; Z90.710 Acquired absence of both cervix and uterus; Z79.82 Long term (current) use of aspirin; Z79.899 Other long term (current) drug therapy
CPT/HCPCS: 81001; 87086; J1885

== ENCOUNTER 2019-06-08 16:24 | Emergency (ER) | payer MEDICARE ==
[2019-06-08 16:55] VITALS: TEMP 96.9
--- NOTE | 2019-06-08 16:55 | ED.PDOC ---
History of Present Illness - General Chief Complaint: General Stated Complaint: weakness,nausea Time Seen by Provider: 06/08/19 16:48 Source: patient, RN notes reviewed, Vital Signs reviewed, family Exam Limitations: no limitations - History of Present Illness Initial Comments: Pt is a 73 yo female who presents to ED with family for 1 day h/o generalized weakness, nausea, abdominal cramps and fatigue. States she has had urinary frequency for the past 2-3 days. Denies fever, cough, SOB, CP, vomiting or diarrhea. Allergies/Adverse Reactions: Allergies NO KNOWN ALLERGY Allergy (Verified 04/09/19 18:18) Home Medications: Ambulatory Orders Phenytoin Sodium Cap Extended [Dilantin Cap] 300 mg PO QPM 02/24/16 RX: Clonidine HCl 0.1 mg PO BID 02/24/16 Atorvastatin Calcium [Lipitor] 20 mg PO QPM 11/04/17 Aspirin [Aspirin Adult Low Dose] 81 mg PO BEDTIME 08/26/18 Omeprazole [Prilosec Cap] 40 mg PO ACBK 10/28/18 Prochlorperazine Tab [Compazine Tab] 10 mg PO PRN PRN 10/28/18 RX: Albuterol Inhaler [Ventolin Hfa Inhaler] 1 - 2 puff INH Q4H PRN #1 inh 03/28/19 Ciprofloxacin [Cipro] 250 mg PO Q12H #14 tablet 04/09/19 Phenazopyridine HCl [Pyridium] 200 mg PO Q8HRS #6 tab 04/09/19 Amoxicillin & Pot Clavulanate [Augmentin Tab] 875 mg PO BID #20 tab 06/08/19 Review of Systems - Review of Systems Constitutional: Denies: chills, fever EENTM: Denies: ear pain, nose congestion, throat pain Respiratory: Denies: cough, short of breath Cardiology: Denies: chest pain, edema, palpitations, syncope Gastrointestinal/Abdominal: States: abdominal pain, nausea. Denies: diarrhea, vomiting Genitourinary: States: frequency. Denies: dysuria Musculoskeletal: Denies: back pain, neck pain Neurological: States: no symptoms reported All other Systems: Reviewed and Negative Past Medical History (General) - Patient Medical History Hx Seizures: Yes Hx Stroke: No Hx Dementia: No Hx Asthma: No Hx of COPD: No Hx Cardiac Disorders: Yes - mitral valve prolapse, hyperlipidemia Hx Congestive Heart Failure: No Hx Pacemaker: No Hx Hypertension: Yes Hx Thyroid Disease: No Hx Diabetes: No Hx Gastroesophageal Reflux: Yes Hx Renal Disease: No Hx Cancer: No Hx of HIV: No Hx Hepatitis C: No Hx MRSA: No - Vaccination History Hx Tetanus, Diphtheria Vaccination: No Hx Influenza Vaccination: Yes Hx Pneumococcal Vaccination: No - Social History Hx Tobacco Use: Yes Hx Alcohol Use: Yes - rare Hx Substance Use: No Hx Substance Use Treatment: No Hx Depression: Yes - denies suicidal ideation Hx Physical Abuse: No Hx Emotional Abuse: No Hx Suspected Abuse: No Family Medical History - Family History Father Living Status: Cause of : CVA Hx Family Stroke: Yes Hx Family Diabetes: Yes Mother Living Status: Hx Cardiac Disease: Yes Hx Family;Other: renal cancer Physical Exam - Physical Exam General Appearance: Comfortable, No apparent distress Eye Exam: bilateral normal - PERRL Ears, Nose, Throat: normal pharynx Neck: non-tender, full range of motion, supple Respiratory: chest non-tender, lungs clear, normal breath sounds, no accessory muscle use Cardiovascular/Chest: regular rate, rhythm, no edema, no murmur Gastrointestinal/Abdominal: soft, other - Mild TTP diffusely. No guarding or rigidity Back Exam: no CVA tenderness, no vertebral tenderness Extremity: normal range of motion, non-tender, no pedal edema, no calf tenderness Neurologic: no motor/sensory deficits, alert, normal mood/affect Progress - Progress Progress: 06/08/19 18:41 Pt presents with generalized weakness, nausea and fatigue. Labs, VS reassuring. CT A/P unremarkable. CXR concerning for pneumonia. Will treat with Augmentin and f/u with pcp within 1 weekk for repeat CXR or sooner if symptoms worsen. - Results/Orders Results/Orders: EKG at 1710 NSR, rate 69, 1st degree AV block, LBBB, nonspecific ST abnormality EXAM DESCRIPTION: Chest,1 View CLINICAL HISTORY: 73 years Female, weakness COMPARISON: Previous study March 28, 2019 TECHNIQUE: AP portable chest. FINDINGS: Heart size is large with normal pulmonary vascularity. Focal density in the right lung base above the diaphragm could be related to rib cartilage calcification of the anterior right sixth rib. Small nodular patchy infiltrate cannot be excluded. Follow-up films recommended to ensure stability or resolution. No pneumothorax or pleural effusion. Bones are unremarkable. IMPRESSION: Focal density in the right lung base. See above. Large heart without congestive failure. IMPRESSION: 1. No acute intra-abdominal abnormality. 2. Colonic diverticulosis without evidence of diverticulitis. 06/08/19 16:52 Hold Metformin x 48Hrs [id number] 06/08/19 17:00 EKG STAT Laboratory Results - last 24 hr 06/08/19 06/08/19 06/08/19 17:01 17:01 17:01 WBC 7.7 RBC 4.21 Hgb 13.5 Hct 39.9 MCV 94.6 MCH 32.1 H MCHC 33.9 RDW 14.2 Plt Count 339 MPV 7.0 L Absolute Neuts (auto) 5.60 Absolute Lymphs (auto) 1.50 Absolute Monos (auto) 0.50 Absolute Eos (auto) 0.00 Absolute Basos (auto) 0.10 Neutrophils % 72.7 Lymphocytes % 19.5 L Monocytes % 6.7 Eosinophils % 0.2 L Basophils % 0.9 Sodium 138 Potassium 4.3 Chloride 105 Carbon Dioxide 27 Anion Gap 10.3 L BUN 17 Creatinine 0.50 L BUN/Creatinine Ratio 34.0 H Random Glucose 104 Serum Osmolality 277.5 Calcium 8.5 Total Bilirubin 0.4 AST 15 ALT 14 Alkaline Phosphatase 113 Troponin I 0.02 Serum Total Protein 6.3 L Albumin 3.7 Globulin 2.6 Albumin/Globulin Ratio 1.4 Lipase 25 Urine Color Urine Appearance Urine pH Ur Specific [place] Urine Protein Urine Glucose (UA) Urine Ketones Urine Blood Urine Nitrite Urine Bilirubin Urine Urobilinogen Ur Leukocyte Esterase Urine RBC Urine WBC Ur Epithelial Cells Urine Bacteria Urine Yeast 06/08/19 17:05 WBC RBC Hgb Hct MCV MCH MCHC RDW Plt Count MPV Absolute Neuts (auto) Absolute Lymphs (auto) Absolute Monos (auto) Absolute Eos (auto) Absolute Basos (auto) Neutrophils % Lymphocytes % Monocytes % Eosinophils % Basophils % Sodium Potassium Chloride Carbon Dioxide Anion Gap BUN Creatinine BUN/Creatinine Ratio Random Glucose Serum Osmolality Calcium Total Bilirubin AST ALT Alkaline Phosphatase Troponin I Serum Total Protein Albumin Globulin Albumin/Globulin Ratio Lipase Urine Color Yellow Urine Appearance Clear Urine pH 7.0 Ur Specific [place] 1.015 Urine Protein Negative Urine Glucose (UA) Negative Urine Ketones Negative Urine Blood Trace-intact H Urine Nitrite Negative Urine Bilirubin Negative Urine Urobilinogen 0.2 Ur Leukocyte Esterase Negative Urine RBC 1-3 Urine WBC 0 Ur Epithelial Cells 1-3 Urine Bacteria Rare Urine Yeast 1+ budding H Departure - Departure Clinical Impression: Pneumonia, Generalized weakness, Nausea, Abdominal pain Time of Disposition: 18:43 Disposition: Discharge to Home or Self Care Condition: Good Departure Forms: ED Discharge - Pt. Copy, Patient Portal Self Enrollment Instructions: Pneumonia, Adult (DC) Diet: resume usual diet Activity: increase activity as tolerated Referrals: Kt Gee MD [Primary Care Provider] - 1-2 Weeks Prescriptions: Amoxicillin & Pot Clavulanate [Augmentin Tab] 875 mg PO BID #20 tab Home Medications: Ambulatory Orders Phenytoin Sodium Cap Extended [Dilantin Cap] 300 mg PO QPM 02/24/16 RX: Clonidine HCl 0.1 mg PO BID 02/24/16 Atorvastatin Calcium [Lipitor] 20 mg PO QPM 11/04/17 Aspirin [Aspirin Adult Low Dose] 81 mg PO BEDTIME 08/26/18 Omeprazole [Prilosec Cap] 40 mg PO ACBK 10/28/18 Prochlorperazine Tab [Compazine Tab] 10 mg PO PRN PRN 10/28/18 RX: Albuterol Inhaler [Ventolin Hfa Inhaler] 1 - 2 puff INH Q4H PRN #1 inh 03/28/19 Ciprofloxacin [Cipro] 250 mg PO Q12H #14 tablet 04/09/19 Phenazopyridine HCl [Pyridium] 200 mg PO Q8HRS #6 tab 04/09/19 Amoxicillin & Pot Clavulanate [Augmentin Tab] 875 mg PO BID #20 tab 06/08/19
--- NOTE | 2019-06-08 17:29 | RAD ---
EXAM DESCRIPTION: Chest,1 View CLINICAL HISTORY: 73 years Female, weakness COMPARISON: Previous study March 28, 2019 TECHNIQUE: AP portable chest. FINDINGS: Heart size is large with normal pulmonary vascularity. Focal density in the right lung base above the diaphragm could be related to rib cartilage calcification of the anterior right sixth rib. Small nodular patchy infiltrate cannot be excluded. Follow-up films recommended to ensure stability or resolution. No pneumothorax or pleural effusion. Bones are unremarkable. IMPRESSION: Focal density in the right lung base. See above. Large heart without congestive failure. Electronically signed by: Willis Hunt MD 06/08/2019 5:28 PM [facility]
[2019-06-08] MEDS: SODIUM CHLORIDE 0.9% 1000ML 1,000 ML IVS PRN (17:33)
[2019-06-08] MEDS: ONDANSETRON INJ 4 MG/2 ML VIAL IV ONE (17:34)
[2019-06-08] MEDS: SODIUM CHLORIDE 0.9% (FLUSH) 10 ML SYG IV PRN (17:37)
--- NOTE | 2019-06-08 18:26 | CT ---
EXAM: CT Abdomen and Pelvis With Intravenous Contrast CLINICAL HISTORY: The patient is 73 years old and is Female; abd pain, nausea TECHNIQUE: Axial computed tomography images of the abdomen and pelvis with intravenous contrast. Sagittal and coronal reformatted images were created and reviewed. This CT exam was performed using one or more of the following dose reduction techniques: automated exposure control, adjustment of the mA and/or kV according to patient size, and/or use of iterative reconstruction technique. COMPARISON: March 20, 2019 FINDINGS: Lung bases: Unremarkable. No mass. No consolidation. ABDOMEN: Liver: Unremarkable. No mass. Gallbladder and bile ducts: Cholecystectomy No ductal dilation. Pancreas: Unremarkable. No mass. No ductal dilation. Spleen: Unremarkable. No splenomegaly. Adrenals: Unremarkable. No mass. Kidneys and ureters: Unremarkable. No solid mass. No hydronephrosis. Stomach and bowel: Colonic diverticulosis without evidence of diverticulitis. No obstruction. PELVIS: Appendix: No findings to suggest acute appendicitis. Bladder: Unremarkable. No mass. Reproductive: Unremarkable as visualized. ABDOMEN and PELVIS: Intraperitoneal space: Unremarkable. No free air. No significant fluid collection. Bones/joints: Spine degenerative changes No acute fracture. No dislocation. Soft tissues: Unremarkable. Vasculature: Atherosclerotic vascular calcifications No abdominal aortic aneurysm. Lymph nodes: Unremarkable. No enlarged lymph nodes. IMPRESSION: 1. No acute intra-abdominal abnormality. 2. Colonic diverticulosis without evidence of diverticulitis. Electronically signed by: Logan Lisa MD 06/08/2019 6:25 PM [employer]
[2019-06-08 18:44] VITALS: O2SAT 97
[2019-06-08] MEDS: AMOXICILLIN & POT CLAVULANATE 875 MG TAB PO ONE (18:53)
[2019-06-08 19:02] VITALS: BP 171/68
== END 2019-06-08 19:02 | disposition home or self-care (01) ==
LOC: ER 16:24
DX: J18.9 Pneumonia, unspecified organism (principal); R10.9 Unspecified abdominal pain; I44.0 Atrioventricular block, first degree; I44.7 Left bundle-branch block, unspecified; R35.0 Frequency of micturition; F32.9 Major depressive disorder, single episode, unspecified; K21.9 Gastro-esophageal reflux disease without esophagitis; I10 Essential (primary) hypertension; E78.5 Hyperlipidemia, unspecified; I34.1 Nonrheumatic mitral (valve) prolapse; Z87.891 Personal history of nicotine dependence; Z79.82 Long term (current) use of aspirin; Z79.899 Other long term (current) drug therapy

== ENCOUNTER 2019-09-27 16:40 | Emergency (ER) | payer MEDICARE ==
[2019-09-27 16:55] VITALS: TEMP 98.7
[2019-09-27] MEDS ORDERED: LISINOPRIL 10 MG TAB PO ONE (17:16)
--- NOTE | 2019-09-27 17:30 | RAD ---
EXAM DESCRIPTION: Chest,1 View CLINICAL HISTORY: 74 years Female, htn, mild sob COMPARISON: Previous study June 08, 2019 TECHNIQUE: AP portable chest. FINDINGS: Heart size is prominent with normal pulmonary vascularity. No consolidating infiltrate. No pulmonary mass or worrisome nodule. No pneumothorax or pleural effusion. Bones are unremarkable. IMPRESSION: Prominent heart without congestive failure. Electronically signed by: Willis Hunt MD 09/27/2019 5:29 PM CDT
[2019-09-27 18:14] VITALS: O2SAT 96
--- NOTE | 2019-09-27 18:41 | ED.PDOC ---
History of Present Illness - General Chief Complaint: Blood Pressure Problem Stated Complaint: elevated BP,left flank pain Time Seen by Provider: 09/27/19 16:48 Source: patient Exam Limitations: no limitations - History of Present Illness Initial Comments: These have been associated with a very mild shortness of breath. No chest pain. No hypoxia. No fever. No productive cough. No urinary symptoms though she has had urinary tract infections in the past. The patient has been taking clonidine somewhat irregularly additionally she quit taking her lisinopril 20 mg daily about a week ago because she felt like it was making her blood pressure a little bit low. She had been on it about weeks prior to that. The blood pressures on the systolic end that she was getting while on the lisinopril were down in the 120s to 130s, which she reports made her feel bad. Timing/Duration: other - 2 days Severity: mild Improving Factors: nothing Worsening Factors: nothing Associated Symptoms: shortness of breath Allergies/Adverse Reactions: Allergies NO KNOWN ALLERGY Allergy (Verified 04/09/19 18:18) Home Medications: Ambulatory Orders Clonidine HCl 0.1 mg PO PRN 02/24/16 Phenytoin Sodium Cap Extended [Dilantin Cap] 300 mg PO QPM 02/24/16 Atorvastatin Calcium [Lipitor] 40 mg PO QPM 11/04/17 Aspirin [Aspirin Adult Low Dose] 81 mg PO BEDTIME 08/26/18 Omeprazole [Prilosec Cap] 40 mg PO ACBK 10/28/18 Lisinopril 10 mg PO DAILY #30 tab 09/27/19 Paroxetine HCl 10 mg PO DAILY 09/27/19 Review of Systems - Review of Systems Constitutional: States: no symptoms reported EENTM: States: no symptoms reported Respiratory: States: short of breath Cardiology: States: no symptoms reported Gastrointestinal/Abdominal: States: no symptoms reported Genitourinary: States: no symptoms reported Musculoskeletal: States: no symptoms reported Skin: States: no symptoms reported Neurological: States: no symptoms reported, anxiety Endocrine: States: no symptoms reported All other Systems: No Change from Baseline Past Medical History (General) - Patient Medical History Hx Seizures: Yes Hx Stroke: No Hx Dementia: No Hx Asthma: No Hx of COPD: No Hx Cardiac Disorders: Yes - mitral valve prolapse, hyperlipidemia Hx Congestive Heart Failure: No Hx Pacemaker: No Hx Hypertension: Yes Hx Thyroid Disease: No Hx Diabetes: No Hx Gastroesophageal Reflux: Yes Hx Renal Disease: No Hx Cancer: No Hx of HIV: No Hx Hepatitis C: No Hx MRSA: No Surgical History: Hysterectomy - Vaccination History Hx Tetanus, Diphtheria Vaccination: No Hx Influenza Vaccination: Yes Hx Pneumococcal Vaccination: No - Social History Hx Tobacco Use: Yes Hx Alcohol Use: Yes - rare Hx Substance Use: No Hx Substance Use Treatment: No Hx Depression: Yes - denies suicidal ideation Hx Physical Abuse: No Hx Emotional Abuse: No Hx Suspected Abuse: No Family Medical History - Family History Mother Living Status: Hx Cardiac Disease: Yes Hx Family;Other: renal cancer Father Living Status: Cause of : CVA Hx Family Stroke: Yes Hx Family Diabetes: Yes Physical Exam - Physical Exam General Appearance: Alert, Anxious, No apparent distress Eye Exam: bilateral normal Ears, Nose, Throat: hearing grossly normal, normal ENT inspection Neck: full range of motion, supple Respiratory: lungs clear, normal breath sounds, no respiratory distress, no accessory muscle use Cardiovascular/Chest: normal peripheral pulses, regular rate, rhythm, no edema Gastrointestinal/Abdominal: non tender, soft Rectal Exam: deferred Back Exam: no CVA tenderness, no vertebral tenderness Extremity: normal range of motion, non-tender, normal inspection, no pedal edema, normal capillary refill 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 The patient is going to be restarted on lisinopril at the lower 10 mg dose. She was given a dose here tonight and blood pressures on the systolic and her back down into the 130s and 140s. She does need to follow back up with her primary care doctor in about a week. ER warnings given. helena deluca [phone] - Results/Orders Results/Orders: Laboratory Tests 09/27/19 17:00 Urine Color Yellow Urine Appearance Sl cloudy Urine pH 6.0 Ur Specific [place] 1.025 Urine Protein Negative Urine Glucose (UA) Negative Urine Ketones Negative Urine Blood Small H Urine Nitrite Negative Urine Bilirubin Negative Urine Urobilinogen 1.0 Ur Leukocyte Esterase Negative Urine RBC 5-10 H Urine WBC 0-1 Ur Epithelial Cells 10-20 Urine Bacteria Rare Urine Mucus Trace Urine Yeast Rare Chest x-ray shows mild cardiomegaly. No other acute processes. EKG shows normal sinus rhythm at 71 bpm. Borderline first-degree AV block. Poor R wave progression anterior leads. No ST segment or T wave changes indicative of acute ischemia. Borderline prolonged QT interval. Left axis deviation consistent with a left bundle branch block. This EKG is consistent with previous EKGs. Departure - Departure Clinical Impression: Hypertensive urgency Disposition: Discharge to Home or Self Care Condition: Fair Departure Forms: ED Discharge - Pt. Copy, Patient Portal Self Enrollment Diet: low salt diet Activity: increase activity as tolerated Referrals: Kt Gee MD [Primary Care Provider] - 1-2 Weeks Prescriptions: Lisinopril 10 mg PO DAILY #30 tab Home Medications: Ambulatory Orders Clonidine HCl 0.1 mg PO PRN 02/24/16 Phenytoin Sodium Cap Extended [Dilantin Cap] 300 mg PO QPM 02/24/16 Atorvastatin Calcium [Lipitor] 40 mg PO QPM 11/04/17 Aspirin [Aspirin Adult Low Dose] 81 mg PO BEDTIME 08/26/18 Omeprazole [Prilosec Cap] 40 mg PO ACBK 10/28/18 Lisinopril 10 mg PO DAILY #30 tab 09/27/19 Paroxetine HCl 10 mg PO DAILY 09/27/19 Additional Instructions: The patient is a 74-year-old female presenting with uncontrolled hypertension. The patient is going to be restarted on lisinopril at the lower 10 mg dose. She was given a dose here tonight and blood pressures on the systolic and her back down into the 130s and 140s. She does need to follow back up with her primary care doctor in about a week. ER warnings given.
[2019-09-27 18:52] VITALS: BP 145/81
== END 2019-09-27 18:51 | disposition home or self-care (01) ==
LOC: ER 16:40
DX: I10 Essential (primary) hypertension (principal); I44.7 Left bundle-branch block, unspecified; E78.5 Hyperlipidemia, unspecified; F17.200 Nicotine dependence, unspecified, uncomplicated

== ENCOUNTER 2019-10-09 10:09 | Emergency (ER) | payer MEDICARE ==
[2019-10-09] MEDS ORDERED: SODIUM CHLORIDE 0.9% 1000ML 1,000 ML IVS ONE (10:27)
[2019-10-09] MEDS ORDERED: PROMETHAZINE HCL INJ 25 MG in SODIUM CHLORIDE 0.9% 50ML 50 ML IVPB ONE (10:27)
[2019-10-09] MEDS ORDERED: ALUM & MAG HYDROX-SIMETHICONE 30 ML, LIDOCAINE VISCOUS 2% 15 ML PO ONE ×2 (10:28)
[2019-10-09] MEDS ORDERED: PANTOPRAZOLE SODIUM IV 40 MG VIAL IV ONE (10:28)
[2019-10-09] MEDS ORDERED: LIDOCAINE HCL 2% (MOUTH-THROAT) 15 ML UD ONE (11:02)
[2019-10-09] MEDS ORDERED: ALUM & MAG HYDROX-SIMETHICONE 30 ML UD ONE (11:02)
[2019-10-09] MEDS ORDERED: PROMETHAZINE HCL INJ 25 MG/ML VIAL ONE (11:02)
[2019-10-09] MEDS ORDERED: SODIUM CHLORIDE 0.9% 50ML 50 ML ONE (11:03)
--- NOTE | 2019-10-09 11:10 | RAD ---
EXAM: XR Abdomen, 2 Views and XR Chest, 1 View CLINICAL HISTORY: nv, chest pressure TECHNIQUE: Frontal view of the chest, frontal view of the abdomen/pelvis and upright or decubitus view of the abdomen. COMPARISON: No relevant prior studies available. FINDINGS: Lungs: Unremarkable. No consolidation. Pleural space: Unremarkable. No pneumothorax. Heart: Unremarkable. No cardiomegaly. Mediastinum: Unremarkable. Intraperitoneal space: No free air. Gastrointestinal tract: There is diffuse mild to moderate stool in the colon. No distention. Bones/joints: Unremarkable. IMPRESSION: No acute findings in the chest, abdomen or pelvis. Electronically signed by: Amy Taylor MD 10/09/2019 11:09 AM CDT
[2019-10-09 12:25] VITALS: O2SAT 96
--- NOTE | 2019-10-09 13:06 | ED.PDOC ---
History of Present Illness - General Chief Complaint: Chest Pain/ND Time Seen by Provider: 10/09/19 10:17 Source: patient Exam Limitations: no limitations - History of Present Illness Initial Comments: The patient is a 74-year-old female presented emergency room secondary to nausea and vomiting that started about 3 hours prior to arrival. After she has been throwing up some she started having some substernal chest discomfort. Not before. No shortness of breath. Chest discomfort goes away with a GI cocktail. Patient was recently in an [place] admitted for hypertensive emergency and monitored for 3 or 4 days there. She reports that she had a nuclear stress test that was essentially normal. The patient has been continued on clonidine along with Coreg and lisinopril all twice daily. She did take and keep down doses of all 3 this morning. She has been around several sick contacts and had nausea and vomiting. She denies any fevers. No shortness of breath. No syncope. She is anxious. Timing/Duration: 4-6 hours Severity: moderate Improving Factors: nothing Worsening Factors: nothing Associated Symptoms: malaise, nausea/vomiting Allergies/Adverse Reactions: Allergies NO KNOWN ALLERGY Allergy (Verified 04/09/19 18:18) Home Medications: Ambulatory Orders Clonidine HCl 0.1 mg PO BID 02/24/16 Phenytoin Sodium Cap Extended [Dilantin Cap] 300 mg PO QPM 02/24/16 Atorvastatin Calcium [Lipitor] 40 mg PO QPM 11/04/17 Aspirin [Aspirin Adult Low Dose] 81 mg PO BEDTIME 08/26/18 Omeprazole [Prilosec Cap] 40 mg PO ACBK PRN 10/28/18 Paroxetine HCl 30 mg PO DAILY 09/27/19 Carvedilol 6.25 mg PO BID 10/09/19 Lisinopril 20 mg PO BID 10/09/19 Ondansetron Odt [Zofran ODT] 4 mg PO Q8HR PRN #5 tab 10/09/19 Prochlorperazine Tab [Compazine Tab] 10 mg PO Q4H PRN 10/09/19 Review of Systems - Review of Systems Constitutional: States: malaise EENTM: States: no symptoms reported Respiratory: States: no symptoms reported Cardiology: States: chest pain Gastrointestinal/Abdominal: States: no symptoms reported, abdominal pain - Cramping, nausea, vomiting Genitourinary: States: no symptoms reported Musculoskeletal: States: no symptoms reported Skin: States: no symptoms reported Neurological: States: anxiety Endocrine: States: no symptoms reported All other Systems: No Change from Baseline Past Medical History (General) - Patient Medical History Hx Seizures: Yes Hx Stroke: No Hx Dementia: No Hx Asthma: No Hx of COPD: No Hx Cardiac Disorders: Yes - mitral valve prolapse, hyperlipidemia Hx Congestive Heart Failure: No Hx Pacemaker: No Hx Hypertension: Yes Hx Thyroid Disease: No Hx Diabetes: No Hx Gastroesophageal Reflux: Yes Hx Renal Disease: No Hx Cancer: No Hx of HIV: No Hx Hepatitis C: No Hx MRSA: No - Vaccination History Hx Tetanus, Diphtheria Vaccination: No Hx Influenza Vaccination: Yes Hx Pneumococcal Vaccination: No - Social History Hx Tobacco Use: Yes Hx Alcohol Use: Yes Hx Substance Use: No Hx Substance Use Treatment: No Hx Depression: Yes Hx Physical Abuse: No Hx Emotional Abuse: No Hx Suspected Abuse: No Family Medical History - Family History Mother Living Status: Hx Cardiac Disease: Yes Hx Family;Other: renal cancer Father Living Status: Cause of : CVA Hx Family Stroke: Yes Hx Family Diabetes: Yes Physical Exam - Physical Exam General Appearance: Alert, Anxious, No apparent distress Eye Exam: bilateral other - Chronic changes only Ears, Nose, Throat: hearing grossly normal, normal pharynx Neck: full range of motion, supple Respiratory: lungs clear, normal breath sounds, no respiratory distress, no accessory muscle use Cardiovascular/Chest: normal peripheral pulses, regular rate, rhythm - Bord jh bradycardic, no edema Peripheral Pulses: radial,right: 2+, radial,left: 2+, dorsalis pedis,right: 2+, dorsalis pedis,left: 2+ Gastrointestinal/Abdominal: soft, other - Mild epigastric discomfort to palpation. 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 This is most likely a viral gastroenteritis given the patient's presentation. Laboratory work, EKG and x-ray are reassuring. She has responded well to a dose of Phenergan and has received a liter of IV fluids. I would recommend that she continue her acid reducing medications at home. She will be written for Zofran ODT's for as needed use to control any further nausea or vomiting. She does need to maintain a bland diet with small frequent meals. She does need to diligently continue her antihypertensive medications. She does need to discuss further her anxiety issues with her primary care doctor in a week to come. ER warnings are given for any worsening. helena deluca [phone] - Results/Orders Results/Orders: Acute abdominal series appears benign. See report for details. EKG shows normal sinus rhythm at 60 bpm with a first-degree AV block. There is chronic left axis deviation and a left bundle branch block. This is consistent with previous EKGs. No evidence of any ST segment elevation or depression consistent with ischemia. Borderline prolonged QT interval. Laboratory Tests 10/09/19 10/09/19 10/09/19 10:27 10:27 10:27 WBC 7.4 RBC 3.92 L Hgb 12.6 Hct 37.0 MCV 94.2 MCH 32.2 H MCHC 34.2 RDW 14.1 Plt Count 355 MPV 6.8 L Absolute Neuts (auto) 5.80 Absolute Lymphs (auto) 1.00 Absolute Monos (auto) 0.50 Absolute Eos (auto) 0.00 Absolute Basos (auto) 0.10 Neutrophils % 77.8 Lymphocytes % 13.6 L Monocytes % 7.2 Eosinophils % 0.6 L Basophils % 0.8 PT 10.7 INR 1.08 PTT (SP) 21.3 L Sodium 136 Potassium 3.9 Chloride 105 Carbon Dioxide 25 Anion Gap 9.9 L BUN 16 Creatinine 0.46 L BUN/Creatinine Ratio 34.8 H Random Glucose 113 H Serum Osmolality 274.0 L Calcium 8.1 L Magnesium 1.9 Total Bilirubin 0.4 AST 19 ALT 22 Alkaline Phosphatase 84 Creatine Kinase 41 CK-MB (CK-2) 2.4 CK-MB (CK-2) % Not Reportable Troponin I < 0.02 B-Natriuretic Peptide 107.0 H Serum Total Protein 5.9 L Albumin 3.2 Globulin 2.7 Albumin/Globulin Ratio 1.2 Amylase 42 Lipase 25 Urine Color Urine Appearance Urine pH Ur Specific [place] Urine Protein Urine Glucose (UA) Urine Ketones Urine Blood Urine Nitrite Urine Bilirubin Urine Urobilinogen Ur Leukocyte Esterase Urine RBC Urine WBC Ur Epithelial Cells Urine Bacteria Group A Strep Rapid 10/09/19 10/09/19 10:27 12:07 WBC RBC Hgb Hct MCV MCH MCHC RDW Plt Count MPV Absolute Neuts (auto) Absolute Lymphs (auto) Absolute Monos (auto) Absolute Eos (auto) Absolute Basos (auto) Neutrophils % Lymphocytes % Monocytes % Eosinophils % Basophils % PT INR PTT (SP) Sodium Potassium Chloride Carbon Dioxide Anion Gap BUN Creatinine BUN/Creatinine Ratio Random Glucose Serum Osmolality Calcium Magnesium Total Bilirubin AST ALT Alkaline Phosphatase Creatine Kinase CK-MB (CK-2) CK-MB (CK-2) % Troponin I B-Natriuretic Peptide Serum Total Protein Albumin Globulin Albumin/Globulin Ratio Amylase Lipase Urine Color Yellow Urine Appearance Clear Urine pH 7.0 Ur Specific [place] 1.020 Urine Protein Negative Urine Glucose (UA) Negative Urine Ketones Negative Urine Blood Trace-intact H Urine Nitrite Negative Urine Bilirubin Negative Urine Urobilinogen 0.2 Ur Leukocyte Esterase Negative Urine RBC 0-1 Urine WBC 0 Ur Epithelial Cells 3-5 Urine Bacteria Rare Group A Strep Rapid Negative Departure - Departure Clinical Impression: Acute gastroenteritis Disposition: Discharge to Home or Self Care Condition: Fair Departure Forms: ED Discharge - Pt. Copy, Patient Portal Self Enrollment Instructions: Viral Gastroenteritis, Adult (DC) Diet: bland diet Activity: increase activity as tolerated Referrals: Kt Gee MD [Primary Care Provider] - 1-2 Weeks Prescriptions: Ondansetron Odt [Zofran ODT] 4 mg PO Q8HR PRN #5 tab PRN Reason: Nausea--Moderate Home Medications: Ambulatory Orders Clonidine HCl 0.1 mg PO BID 02/24/16 Phenytoin Sodium Cap Extended [Dilantin Cap] 300 mg PO QPM 02/24/16 Atorvastatin Calcium [Lipitor] 40 mg PO QPM 11/04/17 Aspirin [Aspirin Adult Low Dose] 81 mg PO BEDTIME 08/26/18 Omeprazole [Prilosec Cap] 40 mg PO ACBK PRN 10/28/18 Paroxetine HCl 30 mg PO DAILY 09/27/19 Carvedilol 6.25 mg PO BID 10/09/19 Lisinopril 20 mg PO BID 10/09/19 Ondansetron Odt [Zofran ODT] 4 mg PO Q8HR PRN #5 tab 10/09/19 Prochlorperazine Tab [Compazine Tab] 10 mg PO Q4H PRN 10/09/19 Additional Instructions: The patient is a 74-year-old female presenting with nausea vomiting starting this morning. This is most likely a viral gastroenteritis given the patient's presentation. Laboratory work, EKG and x-ray are reassuring. She has responded well to a dose of Phenergan and has received a liter of IV fluids. I would recommend that she continue her acid reducing medications at home. She will be written for Zofran ODT's for as needed use to control any further nausea or vomiting. She does need to maintain a bland diet with small frequent meals. She does need to diligently continue her antihypertensive medications. She does need to discuss further her anxiety issues with her primary care doctor in a week to come. ER warnings are given for any worsening.
[2019-10-09 13:09] VITALS: BP 164/71
[2019-10-09 13:21] VITALS: TEMP 97.9
== END 2019-10-09 13:17 | disposition home or self-care (01) ==
LOC: ER 10:09
DX: K52.9 Noninfective gastroenteritis and colitis, unspecified (principal); R07.2 Precordial pain; I44.0 Atrioventricular block, first degree; I10 Essential (primary) hypertension; F17.200 Nicotine dependence, unspecified, uncomplicated; Z79.899 Other long term (current) drug therapy
CPT/HCPCS: 74019; 80053; 81001; 82150; 82550; 82553; 83690; 83735; 83880; 84484; 85025; 85610; 85730; 87070; 87880; 93005; A4216; J2550; J7030

== ENCOUNTER → 2020-01-25 | Outpatient (CLI) | payer MEDICARE | END | disposition home or self-care (01) | LOC: GMA MATASK 10:35 | PROVIDERS: ATTEND Family Medicine | DX: I10 Essential (primary) hypertension (principal) ==

== ENCOUNTER 2020-06-16 16:20 | Emergency (ER) | payer MEDICARE ==
--- NOTE | 2020-06-16 16:39 | ED.PDOC ---
History of Present Illness - General Chief Complaint: General Time Seen by Provider: 06/16/20 16:25 Source: patient, RN notes reviewed, Vital Signs reviewed Exam Limitations: no limitations - History of Present Illness Initial Comments: Pt is a 74 yo female with PMH of HTN and GERD who presents to ED wanting to be tested for COVID. states she was exposed to someone with COVID 1 week ago. Reports she has had congestion and nonproductive cough for the past 3 days. Today, has had fatigue and noticed that her BP was high at home so came to ED for evaluation. Denies fever, chills, SOB, CP, ROBLEDO, abd pain or any urinary symptoms. Allergies/Adverse Reactions: Allergies NO KNOWN ALLERGY Allergy (Verified 06/16/20 16:57) Home Medications: Ambulatory Orders Clonidine HCl 0.1 mg PO BID 02/24/16 Phenytoin Sodium Cap Extended [Dilantin Cap] 300 mg PO QPM 02/24/16 Atorvastatin Calcium [Lipitor] 40 mg PO QPM 11/04/17 Aspirin [Aspirin Adult Low Dose] 81 mg PO BEDTIME 08/26/18 Omeprazole [Prilosec Cap] 40 mg PO ACBK PRN 10/28/18 Paroxetine HCl [Paroxetine Hydrochloride] 30 mg PO DAILY 09/27/19 Carvedilol 6.25 mg PO BID 10/09/19 Lisinopril 20 mg PO BID 10/09/19 Ondansetron Odt [Zofran ODT] 4 mg PO Q8HR PRN #5 tab 10/09/19 Prochlorperazine Tab [Compazine Tab] 10 mg PO Q4H PRN 10/09/19 Methylprednisolone [Medrol Dose Partha] 4 mg PO DAILY 6 Days #21 tab 06/16/20 Review of Systems - Review of Systems Constitutional: States: malaise. Denies: chills, fever EENTM: States: nose congestion. Denies: throat pain Respiratory: States: cough. Denies: short of breath Cardiology: Denies: chest pain, edema, palpitations, syncope Gastrointestinal/Abdominal: Denies: abdominal pain, diarrhea, nausea, vomiting Genitourinary: Denies: dysuria, frequency, hematuria Musculoskeletal: States: muscle pain Skin: Denies: rash All other Systems: Reviewed and Negative Past Medical History (General) - Patient Medical History Hx Seizures: Yes Hx Stroke: No Hx Dementia: No Hx Asthma: No Hx of COPD: No Hx Cardiac Disorders: Yes - mitral valve prolapse, hyperlipidemia Hx Congestive Heart Failure: No Hx Pacemaker: No Hx Hypertension: Yes Hx Thyroid Disease: No Hx Diabetes: No Hx Gastroesophageal Reflux: Yes Hx Renal Disease: No Hx Cancer: No Hx of HIV: No Hx Hepatitis C: No Hx MRSA: No - Vaccination History Hx Tetanus, Diphtheria Vaccination: No Hx Influenza Vaccination: Yes Hx Pneumococcal Vaccination: No - Social History Hx Tobacco Use: Yes Hx Alcohol Use: Yes Hx Substance Use: No Hx Substance Use Treatment: No Hx Depression: Yes Hx Physical Abuse: No Hx Emotional Abuse: No Hx Suspected Abuse: No Family Medical History - Family History Mother Living Status: Hx Cardiac Disease: Yes Hx Family;Other: renal cancer Father Living Status: Cause of : CVA Hx Family Stroke: Yes Hx Family Diabetes: Yes Physical Exam - Physical Exam General Appearance: Alert, Comfortable, No apparent distress Ears, Nose, Throat: normal pharynx Neck: non-tender, full range of motion, supple Respiratory: chest non-tender, lungs clear, normal breath sounds, no respiratory distress Cardiovascular/Chest: regular rate, rhythm, no murmur Gastrointestinal/Abdominal: non tender, soft, no pulsatile mass Back Exam: no CVA tenderness, no vertebral tenderness Extremity: non-tender, normal inspection Skin Exam: normal color, warm/dry Progress - Progress Progress: 06/16/20 17:40 Pt presents to ED for URI symptoms and concerned she might have covid. VS and imaging reassuring. COVID and flu negative. No hypoxia or respiratory distress. feels comfortable going home and f/u with pcp in 1-2 days for recheck. srp given. - Results/Orders Results/Orders: EKG- sinus rhythm with 1st egree AV block, rate 89, nml QRS interval, LBBB, no ST abnormality CHEST XRAY EXAM: XR Chest, 1 View CLINICAL HISTORY: The patient is 74 years old and is Female; cough TECHNIQUE: Single view of the chest. COMPARISON: September 27, 2019. FINDINGS: Lungs: Unremarkable. No consolidation. Pleural space: Unremarkable. No pneumothorax. Heart: Unremarkable. No cardiomegaly. Mediastinum: Unremarkable. Bones/joints: Mild scoliosis. No acute rib fracture. Upper abdomen: No free air in the visualized upper abdomen. IMPRESSION: No acute cardiopulmonary process identified. COVID and FLU negative Departure - Departure Clinical Impression: Viral URI with cough Time of Disposition: 17:44 Disposition: Discharge to Home or Self Care Condition: Good Departure Forms: ED Discharge - Pt. Copy, Patient Portal Self Enrollment Instructions: Viral Upper Respiratory Infection, Adult (DC) Diet: resume usual diet Activity: increase activity as tolerated Referrals: Kt Gee MD [Primary Care Provider] - 1-2 Days Prescriptions: Methylprednisolone [Medrol Dose Partha] 4 mg PO DAILY 6 Days #21 tab Home Medications: Ambulatory Orders Clonidine HCl 0.1 mg PO BID 02/24/16 Phenytoin Sodium Cap Extended [Dilantin Cap] 300 mg PO QPM 02/24/16 Atorvastatin Calcium [Lipitor] 40 mg PO QPM 11/04/17 Aspirin [Aspirin Adult Low Dose] 81 mg PO BEDTIME 08/26/18 Omeprazole [Prilosec Cap] 40 mg PO ACBK PRN 10/28/18 Paroxetine HCl [Paroxetine Hydrochloride] 30 mg PO DAILY 09/27/19 Carvedilol 6.25 mg PO BID 10/09/19 Lisinopril 20 mg PO BID 10/09/19 Ondansetron Odt [Zofran ODT] 4 mg PO Q8HR PRN #5 tab 10/09/19 Prochlorperazine Tab [Compazine Tab] 10 mg PO Q4H PRN 10/09/19 Methylprednisolone [Medrol Dose Partha] 4 mg PO DAILY 6 Days #21 tab 06/16/20
--- NOTE | 2020-06-16 16:59 | RAD ---
EXAM: XR Chest, 1 View CLINICAL HISTORY: The patient is 74 years old and is Female; cough TECHNIQUE: Single view of the chest. COMPARISON: September 27, 2019. FINDINGS: Lungs: Unremarkable. No consolidation. Pleural space: Unremarkable. No pneumothorax. Heart: Unremarkable. No cardiomegaly. Mediastinum: Unremarkable. Bones/joints: Mild scoliosis. No acute rib fracture. Upper abdomen: No free air in the visualized upper abdomen. IMPRESSION: No acute cardiopulmonary process identified. Electronically signed by: Misty Moore MD 06/16/2020 4:58 PM [employer]
[2020-06-16 17:57] VITALS: BP 127/69; TEMP 97.9; O2SAT 95
== END 2020-06-16 17:53 | disposition home or self-care (01) ==
LOC: ER 16:20
DX: J06.9 Acute upper respiratory infection, unspecified (principal); I44.0 Atrioventricular block, first degree; I44.7 Left bundle-branch block, unspecified; F32.9 Major depressive disorder, single episode, unspecified; K21.9 Gastro-esophageal reflux disease without esophagitis; I10 Essential (primary) hypertension; E78.5 Hyperlipidemia, unspecified; R56.9 Unspecified convulsions; I34.1 Nonrheumatic mitral (valve) prolapse; Z20.822 Contact with and (suspected) exposure to COVID-19; Z87.891 Personal history of nicotine dependence; Z79.899 Other long term (current) drug therapy; Z79.82 Long term (current) use of aspirin